=== PATIENT | male | born 1975 | race Caucasian/White ===

== ENCOUNTER 2018-03-25 11:35 | Emergency (ER) | payer MEDICAID ==
[~2018-03-25] VITALS: Ht 177.8 cm; Wt 81.0 kg
[~2018-03-25 11:35] MED LIST: CLIN150C8 PO; HYDR-569 PO
[2018-03-25] MEDS ORDERED: SULF1TAB49 PO (11:52)
[2018-03-25 12:08] VITALS: BP 115/56
== END 2018-03-25 12:11 | disposition home or self-care (01) ==
LOC: ER 11:35
DX: L03.113 Cellulitis of right upper limb (principal); F15.90 Other stimulant use, unspecified, uncomplicated; Z79.899 Other long term (current) drug therapy; Z59.0 Homelessness; Z56.0 Unemployment, unspecified
CPT/HCPCS: 99283

== ENCOUNTER 2019-11-16 18:44 | Emergency (ER) | payer MEDICAID ==
[~2019-11-16] VITALS: Ht 177.8 cm; Wt 80.0 kg
[~2019-11-16 18:44] MED LIST changes: +HYDR-4383 PO; -HYDR-569 PO; +ONDA4TAB6 PO
[2019-11-16 19:41] VITALS: BP 134/74
== END 2019-11-16 19:43 | disposition home or self-care (01) ==
LOC: ER 18:44
DX: Z00.00 Encounter for general adult medical examination without abnormal findings (principal); F41.9 Anxiety disorder, unspecified; F15.90 Other stimulant use, unspecified, uncomplicated; Z59.0 Homelessness; Z56.0 Unemployment, unspecified; Z79.899 Other long term (current) drug therapy
CPT/HCPCS: 99281